=== PATIENT | female | born 1955 | race Caucasian/White ===

== ENCOUNTER 2018-02-17 09:57 | Emergency (ER) | payer MEDICAID ==
[~2018-02-17] VITALS: Ht 167.6 cm; Wt 93.2 kg
[2018-02-17 10:37] VITALS: Ht 167.6 cm; Wt 93.2 kg
[2018-02-17] MEDS ORDERED: MONODOX100 MG PO (10:38)
[2018-02-17] MEDS ORDERED: VASOTEC5 MG PO (10:38)
[2018-02-17] MEDS ORDERED: RIFADIN300 MG PO (10:39)
[2018-02-17] MEDS ORDERED: TYLENOL W/CODEI1 TAB PO (12:14)
[2018-02-17] MEDS ORDERED: VOLTAREN75 MG PO (12:14)
[2018-02-17 12:27] VITALS: BP 126/81
== END 2018-02-17 12:34 | disposition home or self-care (01) ==
LOC: D.ER 09:57
DX: S46.911A Strain of unspecified muscle, fascia and tendon at shoulder and upper arm level, right arm, initial encounter (principal); X58.XXXA Exposure to other specified factors, initial encounter; Y93.89 Activity, other specified; Y92.89 Other specified places as the place of occurrence of the external cause; M79.601 Pain in right arm